=== PATIENT | male | born 1970 | race American Indian/Alaskan Native ===

== ENCOUNTER 2016-07-07 21:34 | Emergency (ER) | payer OTHER ==
[2016-07-07] MEDS ORDERED: cefTRIAXone 250 MG Vial IM ONE (21:48)
--- NOTE | 2016-07-07 21:48 | EDM.PDOC ---
ED HPI GENERAL MEDICAL PROBLEM - General Chief Complaint: General Stated Complaint: MALE PROBLEMS Time Seen by Provider: 07/07/16 23:09 - History of Present Illness INITIAL COMMENTS - FREE TEXT/NARRATIVE: HISTORY AND PHYSICAL: History of present illness: Patient 45-year-old white male present to insert a three-day history of left testicular pain he did note urethral discharge no penile lesions he denies STD he states he has had some sexual contacts that are suspect he denies fever chills nausea vomiting or trauma Review of systems: As per history of present illness and below otherwise all systems reviewed and negative. Past medical history: As per history of present illness and as reviewed below otherwise noncontributory. Surgical history: As per history of present illness and as reviewed below otherwise noncontributory. Social history: No reported history of drug or alcohol abuse. Family history: As per history of present illness and as reviewed below otherwise noncontributory. Physical exam: HEENT: Atraumatic, normocephalic, pupils reactive, negative for conjunctival pallor or scleral icterus, mucous membranes moist, throat clear, neck supple, nontender, trachea midline. Lungs: Clear to auscultation, breath sounds equal bilaterally, chest nontender. Heart: S1S2, regular, negative for clicks, rubs, or JVD. Abdomen: Soft, nondistended, nontender. Negative for masses or hepatosplenomegaly. Negative for costovertebral tenderness. Pelvis: Stable nontender. Genitourinary: Patient has no penile lesions no urethral discharge he does have significant tenderness and swelling of his left testicle this seems more posterior and does involve the epididymis Rectal: Deferred. Extremities: Atraumatic, negative for cords or calf pain. Neurovascular unremarkable. Neuro: Awake, alert, oriented. Cranial nerves II through XII unremarkable. Cerebellum unremarkable. Motor and sensory unremarkable throughout. Exam nonfocal. Diagnostics: UA urine culture urine for GC/Chlamydia testicular ultrasound Therapeutics: Rocephin 1 g IM Impression: #1 left testicular pain rule out epididymal orchitis Definitive disposition and diagnosis as appropriate pending reevaluation and review of above. - Related Data Allergies Allergy/AdvReac Type Severity Reaction Status Date / Time Penicillins Allergy Other Verified 07/07/16 21:43 Home Meds: Home Meds . [No Known Home Meds] 07/07/16 [History] ED ROS GENERAL - Review of Systems Review Of Systems: ROS reveals no pertinent complaints other than HPI. ED EXAM, GENERAL - Physical Exam Exam: See Below (See dictation) Course - Vital Signs Last Recorded V/S: Last Vital Signs Temp 36.6 C 07/07/16 21:43 Pulse 101 H 07/07/16 21:43 Resp 18 07/07/16 21:43 BP 158/95 H 07/07/16 21:43 Pulse Ox 99 07/07/16 21:43 - Orders/Labs/Meds Orders: Active Orders 24 hr Category Date Time Status Scrotal Duplex Ltd [US] Routine Exams 07/07/16 22:23 Ordered Testicular US [Scrotum and Contents] [US] Stat Exams 07/07/16 21:49 Ordered CHLAMYDIA TRACHOMATIS/GC AMPLF Stat Lab 07/07/16 22:00 Received CULTURE URINE [RM] Stat Lab 07/07/16 22:00 Received Labs: Laboratory Tests 07/07/16 Range/Units 22:00 Urine Color YELLOW Urine Appearance CLEAR Urine pH 5.0 (5.0-8.0) Ur Specific [place] >= 1.030 (1.001-1.035) Urine Protein NEGATIVE (NEGATIVE) mg/dL Urine Glucose (UA) NEGATIVE (NEGATIVE) mg/dL Urine Ketones NEGATIVE (NEGATIVE) mg/dL Urine Occult Blood SMALL H (NEGATIVE) Urine Nitrite NEGATIVE (NEGATIVE) Urine Bilirubin NEGATIVE (NEGATIVE) Urine Urobilinogen 0.2 (<2.0) EU/dL Ur Leukocyte Esterase SMALL (NEGATIVE) Urine RBC 2-4 (0-2/HPF) Urine WBC 40-45 (0-5/HPF) Ur Epithelial Cells RARE (NONE-FEW) Urine Bacteria RARE (NEGATIVE) Urine Mucus LIGHT (NONE-MOD) Meds: Medications Discontinued Medications Generic Name Dose Route Start Last Admin Trade Name Freq PRN Reason Stop Dose Admin Ceftriaxone Sodium 1,000 mg 07/07/16 21:48 07/07/16 23:03 Rocephin IM 07/07/16 21:49 Not Given ONETIME ONE Ceftriaxone Sodium 1,000 mg/ 4 mls @ 4 mls/sec 07/07/16 22:34 07/07/16 23:00 Lidocaine HCl IM 07/07/16 22:35 4 mls/sec ONETIME ONE Administration Departure - Departure Time of Disposition: 23:10 Disposition: Home, Self-Care 01 Condition: good Clinical Impression: Epididymo-orchitis Forms: ED Department Discharge Additional Instructions: The following information is given to patients seen in the emergency department who are being discharged to home. This information is to outline your options for follow-up care. We provide all patients seen in our emergency department with a follow-up referral. The need for follow-up, as well as the timing and circumstances, are variable depending upon the specifics of your emergency department visit. If you don't have a primary care physician on staff, we will provide you with a referral. We always advise you to contact your personal physician following an emergency department visit to inform them of the circumstance of the visit and for follow-up with them and/or the need for any referrals to a consulting specialist. The emergency department will also refer you to a specialist when appropriate. This referral assures that you have the opportunity for followup care with a specialist. All of these measure are taken in an effort to provide you with optimal care, which includes your followup. Under all circumstances we always encourage you to contact your private physician who remains a resource for coordinating your care. When calling for followup care, please make the office aware that this follow-up is from your recent emergency room visit. If for any reason you are refused follow-up, please contact the [facility] emergency department at and asked to speak to the emergency department charge nurse. [facility] Specialty Care - Urology [address] [place] [id number] Doxycycline as prescribed Ultram as prescribed follow up urology above called to schedule appointment follow up primary medical doctor return as needed as discussed - My Orders Last 24 Hours: My Active Orders 07/07/16 21:49 Testicular US [Scrotum and Contents] [US] Stat 07/07/16 22:00 CHLAMYDIA TRACHOMATIS/GC AMPLF Stat CULTURE URINE [RM] Stat 07/07/16 22:23 Scrotal Duplex Ltd [US] Routine - Assessment/Plan Last 24 Hours: My Active Orders 07/07/16 21:49 Testicular US [Scrotum and Contents] [US] Stat 07/07/16 22:00 CHLAMYDIA TRACHOMATIS/GC AMPLF Stat CULTURE URINE [RM] Stat 07/07/16 22:23 Scrotal Duplex Ltd [US] Routine
[2016-07-07 21:58] VITALS: BP 158/95
[2016-07-07] MEDS ORDERED: cefTRIAXone 1,000 MG in Lidocaine 1% 4 ML IM ONE (22:34)
--- NOTE | 2016-07-08 15:07 | US ---
EXAM DATE: 07/07/16 PATIENT'S AGE: 45 Patient: KAYLYN TAVERAS Facility: [place], [place] Site . Site : 1970 Study: US Testicle [id number]/7/2017 11:11:24 PM Ordering Physician: Doctor Hayes Final Report: HISTORY: Pain in testicle started 2 days ago. Some old outside car this afternoon and pain intensified this evening. FINDINGS: Multiple grayscale static images from a cystic ultrasound were evaluated. Color and spectral Doppler was used. Five cine clips history obtained. The right testicle measures 4.3 x 2.3 x 2.9 cm. The echotexture is homogeneous normal blood flow. There is a fluid collection seen is superior and lateral to the right testicle which contain some debris. The right epididymis is normal. The left testicle measures 4.5 x 2.5 x 2.9 cm. Initial images of the testicles demonstrate homogeneous echotexture with normal blood flow. The testicle was reexamined. These second series of the images demonstrate a heterogeneous appearance to the inferior left testicle with increased vascularity. This area measures roughly 2 cm in size and contains 11 x 9 x 8 mm hypoechoic focus. Some of images suggest this may be within the testicle, although it is was not apparent on the initial images. the heterogeneous appearance of the surrounding tissues suggests this may represent enlarged epididymal tail. There is a fluid collection seen superior to the left testicle which contains some debris. IMPRESSION: 1. No evidence of testicular torsion. 2. Questionable enlarged epididymal tail with increased vascularity suggesting epididymitis with mass effect on the inferior testicle versus an intratesticular mass. Repeat evaluation of the left testicle is recommended for clarification. 3. Bilateral scrotal fluid collections with debris. These may represent complicated hydroceles or spermatoceles. Dictated by Pao Jefferson MD @ 07/07/2016 11:48:21 PM Dictated by: Pao Jefferson MD @ 07/07/2016 23:48:50 (Electronic Signature) Report Signed by Proxy and Original Signed Document filed in the Medical Record. [facility]
--- NOTE | 2016-07-08 15:07 | US ---
EXAM DATE: 07/07/16 PATIENT'S AGE: 45 Patient: KAYLYN TAVERAS Facility: [place], [place] Site . Site : 1970 Study: US Testicle [id number]/7/2017 11:11:24 PM Ordering Physician: Doctor Hayes Final Report: HISTORY: Pain in testicle started 2 days ago. Some old outside car this afternoon and pain intensified this evening. FINDINGS: Multiple grayscale static images from a cystic ultrasound were evaluated. Color and spectral Doppler was used. Five cine clips history obtained. The right testicle measures 4.3 x 2.3 x 2.9 cm. The echotexture is homogeneous normal blood flow. There is a fluid collection seen is superior and lateral to the right testicle which contain some debris. The right epididymis is normal. The left testicle measures 4.5 x 2.5 x 2.9 cm. Initial images of the testicles demonstrate homogeneous echotexture with normal blood flow. The testicle was reexamined. These second series of the images demonstrate a heterogeneous appearance to the inferior left testicle with increased vascularity. This area measures roughly 2 cm in size and contains 11 x 9 x 8 mm hypoechoic focus. Some of images suggest this may be within the testicle, although it is was not apparent on the initial images. the heterogeneous appearance of the surrounding tissues suggests this may represent enlarged epididymal tail. There is a fluid collection seen superior to the left testicle which contains some debris. IMPRESSION: 1. No evidence of testicular torsion. 2. Questionable enlarged epididymal tail with increased vascularity suggesting epididymitis with mass effect on the inferior testicle versus an intratesticular mass. Repeat evaluation of the left testicle is recommended for clarification. 3. Bilateral scrotal fluid collections with debris. These may represent complicated hydroceles or spermatoceles. Dictated by Pao Jefferson MD @ 07/07/2016 11:48:21 PM Dictated by: Pao Jefferson MD @ 07/07/2016 23:48:50 (Electronic Signature) Report Signed by Proxy and Original Signed Document filed in the Medical Record. [facility]
== END 2016-07-08 00:05 | disposition home or self-care (01) ==
LOC: MW.ED 21:34
DX: N45.3 Epididymo-orchitis (principal); Z88.0 Allergy status to penicillin
CPT/HCPCS: 76870; 81001; 87086; 87491; 87591; 93976; 96372; 99284; J0696; 99283

== ENCOUNTER 2016-07-12 17:07 | Emergency (ER) | payer OTHER ==
[2016-07-12 17:29] VITALS: BP 130/91
--- NOTE | 2016-07-12 18:19 | EDM.PDOC ---
ED HPI Trauma - General Chief Complaint: Lower Extremity Injury/Pain Stated Complaint: PT HAS SWOLLEN RT KNEE Time Seen by Provider: 07/12/16 18:16 Source: Reports: Patient History Limitations: Reports: No limitations - History of Present Illness INITIAL COMMENTS - FREE TEXT/NARRATIVE: HISTORY AND PHYSICAL: [45 year old male, presenting with right knee pain. Patient presents with crutches History of Present Illness: [Pain started 2 days ago Initially patient stated he did not have a specific injury Later patient stated that he jumped out of his pickup and twisted his knee] Review of Systems: As per history of present illness and below otherwise all systems reviewed and negative. Past medical history: As per history of present illness and as reviewed below otherwise noncontributory. Surgical history: As per history of present illness and as reviewed below otherwise noncontributory. Social history: No reported history of drug or alcohol abuse. Family history: As per history of present illness and as reviewed below otherwise noncontributory. Physical exam: Alert,oriented. HEENT: Atraumatic, normocehpalic, pupils reactive, negative for conjunctival pallor or scleral icterus, mucous membranes moist, throat clear, neck supple, nontender, trachea midline. Lungs: Clear to auscultation, breath sounds equal bilaterally, chest non tender. Heart: S1S2, regular, negative for clicks, rubs, or JVD. Abdomen: Soft, nondistended, nontender. Negative for masses or hepatossplenmegaly. Negative for costovertebral tenderness. Pelvis: Stable nontender. Genitourinary: Deferred. Rectal: Deferred Extremities: Atraumatic, negative for cords or calf pain. Neurovascular unremarkable. Neuro: Awake, alert, oriented. Cranial nerves II through XII unremarkable. Cerebellum unremarkable. Motor and sensory unremarkable throughout. Exam nonfocal. Diagnostics: [] Right Knee xray/US right knee Therapeutics: [Knee immobilizer] Impression: [Knee pain] Plan: [Knee immobilizer he is to use crutches Followup with pharmacy operations specialist [facility] Special[facility] - [facility] [address] [place] [address], [address] [place] [address] Nonweightbearing 24 hours] Definitive disposition and diagnosis as appropriate pending reevaluation and review of above. Occurred When: other ( 2days ago) Occurred Where: other (unknown) Method of Injury: unknown Severity: moderate Pain/Injury Location: Reports: none Associated Symptoms: Reports: no other symptoms Allergies/ADRs: Allergies Penicillins Allergy (Verified 07/12/16 17:20) Other Home Medications: Ambulatory Orders Doxycycline [Vibramycin] 100 mg IV Q12HR #20 vial 07/09/16 [Confirmed 07/12/16] Past Medical History - Past Health History Medical/Surgical History: Denies Medical/Surgical History HEENT History: Reports: None Cardiovascular History: Reports: None Respiratory History: Reports: None Gastrointestinal History: Reports: None Genitourinary History: Reports: Other (see below) Other Genitourinary History: orchitis Musculoskeletal History: Reports: None Neurological History: Reports: None Psychiatric History: Reports: None Endocrine/Metabolic History: Reports: None Dermatologic History: Reports: None - Infectious Disease History Infectious Disease History: Reports: None - Past Surgical History Musculoskeletal Surgical History: Reports: Other (see below) Other Musculoskeletal Surgeries/Procedures:: left knee surgery Social & Family History - Family History Family Medical History: Noncontributory - Tobacco Use Smoking Status *Q: Current Every Day Smoker Years of Tobacco use: 2 Packs/Tins Daily: 1 - Caffeine Use Caffeine Use: Reports: Coffee - Recreational Drug Use Recreational Drug Use: No Drug Use in Last 12 Months: No Review of Systems - Review of Systems Review Of Systems: ROS reveals no pertinent complaints other than HPI. Trauma Exam - Physical Exam Exam: See Below (The dictation) Course - Vital Signs Last Recorded V/S: Last Vital Signs Temp 37.1 C 07/12/16 17:24 Pulse 96 07/12/16 17:24 Resp 18 07/12/16 17:24 BP 130/91 H 07/12/16 17:24 Pulse Ox 100 07/12/16 17:24 - Orders/Labs/Meds Orders: Active Orders 24 hr Category Date Time Status Extremity Non Vascular Rt [US] Stat Exams 07/12/16 18:25 Ordered Knee 3V Rt [CR] Stat Exams 07/12/16 17:22 Taken Labs: Laboratory Tests 07/12/16 07/12/16 Range/Units 18:31 18:31 WBC 8.69 (4.0-11.0) K/uL RBC 4.54 (4.50-5.90) M/uL Hgb 13.2 (13.0-17.0) g/dL Hct 38.5 (38.0-50.0) % MCV 84.8 (80.0-98.0) fL MCH 29.1 (27.0-32.0) pg MCHC 34.3 (31.0-37.0) g/dL RDW Std Deviation 38.6 (28.0-62.0) fl RDW Coeff of Ame 13 (11.0-15.0) % Plt Count 249 (150-400) K/uL MPV 8.80 (7.40-12.00) fL Neut % (Auto) 67.0 (48.0-80.0) % Lymph % (Auto) 21.6 (16.0-40.0) % [place] % (Auto) 9.8 (0.0-15.0) % Eos % (Auto) 1.4 (0.0-7.0) % Baso % (Auto) 0.2 (0.0-1.5) % Neut # 5.8 H (1.4-5.7) K/uL Lymph # 1.9 (0.6-2.4) K/uL [place] # 0.9 H (0.0-0.8) K/uL Eos # 0.1 (0.0-0.7) K/uL Baso # 0.0 (0.0-0.1) K/uL Nucleated RBC % 0.0 /100WBC Nucleated RBCs # 0 K/uL ESR 79 H (0-14) mm/hr Sodium 140 (136-146) mmol/L Potassium 3.8 (3.5-5.1) mmol/L Chloride 107 (98-110) mmol/L Carbon Dioxide 22 (21-31) mmol/L BUN 17 (6.0-23.0) mg/dL Creatinine 0.8 (0.6-1.5) mg/dL Est Cr Clr Drug Dosing 114.00 mL/min Estimated GFR (MDRD) > 60.0 ml/min Glucose 121 H (60-110) mg/dL Calcium 9.3 (8.8-10.8) mg/dL Total Bilirubin 0.3 (0.1-1.5) mg/dL AST 13 (5-40) IU/L ALT 24 (8-54) IU/L Alkaline Phosphatase 120 (40-150) Total Protein 8.0 (6.0-8.0) g/dL Albumin 3.6 (3.5-5.0) g/dL Globulin 4.4 H (2.0-3.5) g/dL Albumin/Globulin Ratio 0.8 L (1.3-2.8) Departure - Departure Time of Disposition: 19:13 Disposition: Home, Self-Care 01 Condition: good Clinical Impression: Knee pain, acute Qualifiers: Laterality: right Qualified Code(s): M25.561 - Pain in right knee Forms: ED Department Discharge Additional Instructions: The following information is given to patients seen in the emergency department who are being discharged to home. This information is to outline your options for follow-up care. We provide all patients seen in our emergency department with a follow-up referral. The need for follow-up, as well as the timing and circumstances, are variable depending upon the specifics of your emergency department visit. If you don't have a primary care physician on staff, we will provide you with a referral. We always advise you to contact your personal physician following an emergency department visit to inform them of the circumstance of the visit and for follow-up with them and/or the need for any referrals to a consulting specialist. The emergency department will also refer you to a specialist when appropriate. This referral assures that you have the opportunity for followup care with a specialist. All of these measure are taken in an effort to provide you with optimal care, which includes your followup. Under all circumstances we always encourage you to contact your private physician who remains a resource for coordinating your care. When calling for followup care, please make the office aware that this follow-up is from your recent emergency room visit. If for any reason you are refused follow-up, please contact the [facility] emergency department at and asked to speak to the emergency department charge nurse. Prescription of diclofenac has been sent to [facility] - My Orders Last 24 Hours: My Active Orders 07/12/16 17:22 Knee 3V Rt [CR] Stat 07/12/16 18:25 Extremity Non Vascular Rt [US] Stat - Assessment/Plan Last 24 Hours: My Active Orders 07/12/16 17:22 Knee 3V Rt [CR] Stat 07/12/16 18:25 Extremity Non Vascular Rt [US] Stat
[2016-07-12 19:01] LABS: CHLORIDE,CL 107 mmol/L (98-110); SODIUM,NA 140 mmol/L (136-146)
--- NOTE | 2016-07-13 21:47 | CR ---
EXAM DATE: 07/12/16 PATIENT'S AGE: 45 Patient: KAYLYN TAVERAS Facility: [place], [place] Site . Site : 1970 Study: XRay Knee Right [id number]/12/2017 5:47:09 PM Ordering Physician: Doctor Hayes Final Report: INDICATION: Knee Pain TECHNIQUE: Right knee 3 views. COMPARISON: None. FINDINGS: Bones: Alignment is normal. No fractures or bone lesions. Joint spaces: Unremarkable. Soft tissues: Unremarkable. IMPRESSION: Unremarkable right knee. Dictated by: Riccardo Maurer MD @ 07/12/2016 18:10:00 (Electronic Signature) Report Signed by Proxy and Original Signed Document filed in the Medical Record. MTDD
--- NOTE | 2016-07-13 21:48 | US ---
EXAM DATE: 07/12/16 PATIENT'S AGE: 45 Patient: KAYLYN TAVERAS Facility: [place], [place] Site . Site : 1970 Study: US Knee [id number]/12/2017 7:14:44 PM Ordering Physician: Doctor Hayes Final Report: Indication: Pain and edema. Technique: Soft tissue ultrasound of the right posterior knee. Comparison: None. Findings: In the region of concern behind the right knee there is only normal tissue. No evidence of a Fajardo cyst. No abnormal fluid collection or edema. Impression: Negative ultrasound of the right popliteal fossa. Dictated by Alicia Quiñonez MD @ Jul 12 2016 7:33PM (Electronic Signature) Report Signed by Proxy and Original Signed Document filed in the Medical Record. [facility]
== END 2016-07-12 19:29 | disposition home or self-care (01) ==
LOC: MW.ED 17:07
DX: M25.561 Pain in right knee (principal); Z88.0 Allergy status to penicillin; F17.210 Nicotine dependence, cigarettes, uncomplicated
CPT/HCPCS: 36415; 73562-26-RT; 73562-RT; 76881-26-RT; 76881-RT; 80053; 85025; 85652; 99283; 99284-25

== ENCOUNTER 2017-08-27 08:46 | Emergency (ER) | payer SELFPAY ==
--- NOTE | 2017-08-27 09:05 | EDM.PDOC ---
ED HPI GENERAL MEDICAL PROBLEM - General Chief Complaint: General Stated Complaint: medical clearance Time Seen by Provider: 08/27/17 08:56 - History of Present Illness INITIAL COMMENTS - FREE TEXT/NARRATIVE: HISTORY AND PHYSICAL: History of present illness: The patient is a 46-year-old male who denies pre-existing medical problems who presents with police for medical clearance. He currently has no complaints but is currently under arrest. He says he's been eating and drinking normally and has no chest pain shortness of breath or other systemic complaints. Review of systems: As per history of present illness and below otherwise all systems reviewed and negative. Past medical history: As per history of present illness and as reviewed below otherwise noncontributory. Surgical history: As per history of present illness and as reviewed below otherwise noncontributory. Social history: No reported history of drug or alcohol abuse. Family history: As per history of present illness and as reviewed below otherwise noncontributory. Physical exam: HEENT: Atraumatic, normocephalic, pupils reactive, negative for conjunctival pallor or scleral icterus, mucous membranes moist, throat clear, neck supple, nontender, trachea midline. Lungs: Clear to auscultation, breath sounds equal bilaterally, chest nontender. Heart: S1S2, regular rate and rhythm no overt murmurs Abdomen: Soft, nondistended, nontender. NABS Pelvis deferred Genitourinary: Deferred. Rectal: Deferred. Extremities: Atraumatic, negative for cords or calf pain. Neurovascular unremarkable. Neuro: Awake, alert, oriented. Cranial nerves II through XII unremarkable. Cerebellum unremarkable. Motor and sensory unremarkable throughout. Exam nonfocal. Patient ambulated into the ED without assistance Diagnostics: [employer]: [] Impression: Screening medical exam for incarceration Definitive disposition and diagnosis as appropriate pending reevaluation and review of above. - Related Data Allergies Allergy/AdvReac Type Severity Reaction Status Date / Time Penicillins Allergy Other Verified 08/27/17 09:02 Home Meds: Home Meds Doxycycline [Vibramycin] 100 mg IV Q12HR #20 vial 07/09/16 [Rx] Past Medical History - Past Health History Medical/Surgical History: Denies Medical/Surgical History HEENT History: Reports: None Cardiovascular History: Reports: None Respiratory History: Reports: None Gastrointestinal History: Reports: None Genitourinary History: Reports: Other (See Below) Other Genitourinary History: orchitis Musculoskeletal History: Reports: None Neurological History: Reports: None Psychiatric History: Reports: None Endocrine/Metabolic History: Reports: None Dermatologic History: Reports: None - Infectious Disease History Infectious Disease History: Reports: None - Past Surgical History Musculoskeletal Surgical History: Reports: Other (See Below) Social & Family History - Family History Family Medical History: Noncontributory - Tobacco Use Smoking Status *Q: Current Every Day Smoker Years of Tobacco use: 2 Packs/Tins Daily: 1 - Caffeine Use Caffeine Use: Reports: Coffee - Recreational Drug Use Recreational Drug Use: No Drug Use in Last 12 Months: No ED ROS GENERAL - Review of Systems Review Of Systems: ROS reveals no pertinent complaints other than HPI. ED EXAM, GENERAL - Physical Exam Exam: See Below (see dictation) Course - Vital Signs Last Recorded V/S: Last Vital Signs Temp 35.4 C 08/27/17 09:00 Pulse 64 08/27/17 09:00 Resp 18 08/27/17 09:00 BP 130/91 H 08/27/17 09:00 Pulse Ox 96 08/27/17 09:00 - Orders/Labs/Meds Orders: Active Orders 24 hr Category Date Time Status Blood Glucose Check, Bedside [RC] ONETIME Care 08/27/17 08:57 Active Labs: Laboratory Tests 08/27/17 Range/Units 09:00 POC Glucose 117 H (60-110) mg/dL Departure - Departure Time of Disposition: 09:04 Disposition: Home, Self-Care 01 Condition: Good Clinical Impression: Medical clearance for incarceration - Discharge Information Additional Instructions: The following information is given to patients seen in the emergency department who are being discharged to home. This information is to outline your options for follow-up care. We provide all patients seen in our emergency department with a follow-up referral. The need for follow-up, as well as the timing and circumstances, are variable depending upon the specifics of your emergency department visit. If you don't have a primary care physician on staff, we will provide you with a referral. We always advise you to contact your personal physician following an emergency department visit to inform them of the circumstance of the visit and for follow-up with them and/or the need for any referrals to a consulting specialist. The emergency department will also refer you to a specialist when appropriate. This referral assures that you have the opportunity for followup care with a specialist. All of these measure are taken in an effort to provide you with optimal care, which includes your followup. Under all circumstances we always encourage you to contact your private physician who remains a resource for coordinating your care. When calling for followup care, please make the office aware that this follow-up is from your recent emergency room visit. If for any reason you are refused follow-up, please contact the [facility] emergency department at and ask to speak to the emergency department charge nurse. [facility] Primary care- Internal [place] [address] Push hydration and schedule follow-up appointment in the clinic when you're able. Return to ER as needed and as discussed - My Orders Last 24 Hours: My Active Orders 08/27/17 08:57 Blood Glucose Check, Bedside [RC] ONETIME - Assessment/Plan Last 24 Hours: My Active Orders 08/27/17 08:57 Blood Glucose Check, Bedside [RC] ONETIME
[2017-08-27 09:29] VITALS: BP 130/91
== END 2017-08-27 09:10 ==
LOC: MW.ED 08:46
DX: Z02.89 Encounter for other administrative examinations (principal); F17.210 Nicotine dependence, cigarettes, uncomplicated; Z88.0 Allergy status to penicillin
CPT/HCPCS: 82962; 99283